=== PATIENT | male | born 2005 | race Caucasian/White ===

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

== ENCOUNTER 2023-02-13 10:03 | Emergency (ER) | payer OTHER, SELFPAY ==
--- NOTE | 2023-02-13 10:09 | HMH.EDGENADL ---
Discharge Plan Disposition Patient Disposition: Home, Self-Care Condition: Good Prescriptions Prescriptions: New ondansetron 4 mg tablet,disintegrating 4 mg PO Q8H PRN (Reason: nausea and vomiting) 3 Days Qty: 12 0RF No Action ondansetron 4 mg tablet,disintegrating 4 mg PO Q8H PRN (Reason: nausea and vomiting) Qty: 10 0RF Referrals Follow up/Referrals: Provider,Referral, MD [Primary Care Provider] - See instructions Activity Restrictions/Add. Instructions Additional Instructions/Restrictions: At this time is felt you are safe to be discharged home. If new or worsening symptoms please do not hesitate to return to the emergency department. Please take your medication as prescribed. Clinical Impressions Clinical Impression: Nausea Instructions Patient Instructions: DI for Nausea -- Adult Discharge ED Provider: Raghu You General Adult HPI General Chief complaint: Nausea/Vomiting/Diarrhea Stated complaint: Nausea Time Seen by Provider: 02/13/23 10:06 History of Present Illness HPI narrative: Patient is a 17-year-old male with no pertinent past medical history presents emergency department for evaluation of nausea. History is obtained by patient and significant other at bedside. After eating cracker last night both patient and his significant other have felt nauseous and not good . Patient has had no vomiting, still voiding and stooling without blood. Denies abdominal pain, chest pain, other acute complaints at this time. Due to refractory nausea who presents here for continued evaluation. Related Data Previous Rx's Medication Instructions Recorded ondansetron 4 mg disintegrating 4 mg PO Q8H PRN nausea and 12/02/22 tablet vomiting #10 tabs ondansetron 4 mg disintegrating 4 mg PO Q8H PRN nausea and 02/13/23 tablet vomiting 3 days #12 tabs Allergies Allergy/AdvReac Type Severity Reaction Status Date / Time No Known Allergies Allergy Verified 11/13/22 11:34 [facility] Disclaimer: The information contained in this section may have been updated after the patient was seen, as this information can be updated by other users. 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 Travel in the last 8 weeks: None household members: family housing: house ROS Obtained: Yes Systems reviewed as appropriate & no additional complaints except as documented Physical Exam General General appearance: alert and in no apparent distress Head Head exam: atraumatic and normocephalic Eye Eye exam: Present PERRL and EOMI ENT ENT exam: Present mucous membranes moist Neck Neck exam: Present normal inspection Chest Chest inspection: Present normal inspection and symmetric chest wall rise Respiratory Respiratory exam: Absent respiratory distress Cardiovascular Cardiovascular exam: Present regular rate and normal rhythm Abdominal Exam Abdominal exam: Present soft; Absent tenderness, guarding, rebound or rigidity Extremities Exam Extremities exam: Present normal inspection Neurological Exam Neurological exam: Present alert and oriented X3 Psychiatric Psychiatric exam: Present normal affect Skin Skin exam: Present warm and dry Medical Decision Making Castillo Inquiry Pt receiving controlled substance: No Medical Decision Narrative: In summary patient is a 17-year-old male with past medical history described above who presents emergency department for evaluation of nausea. Patient is hemodynamically stable nontoxic-appearing upon arrival, afebrile. Differential diagnosis includes toxin mediated gastroenteritis, viral syndrome, among others. Given benign abdominal exam and normal hemodynamics work-up with labs and imaging was considered however doubt serious pathology will be deferred at this time. Initial interventions incl
[2023-02-13 10:10] VITALS: BP 141/80; PULSE 95; RESP 16; TEMP 36.5; O2SAT 98; BMI 48.2
[2023-02-13 10:22] VITALS: BP 141/80; PULSE 79; RESP 18; TEMP 36.5; O2SAT 95
== END 2023-02-13 10:25 | disposition home or self-care (01) ==
LOC: ER 10:25
PROVIDERS: Emergency Provider Emergency Medicine
DX: R11.0 Nausea (principal); F17.200 Nicotine dependence, unspecified, uncomplicated
CPT/HCPCS: 99283

== ENCOUNTER 2023-03-21 16:46 | Emergency (ER) | payer BC, SELFPAY ==
[2023-03-21 16:46] VITALS: BP 139/90; PULSE 76; RESP 18; TEMP 36.9; O2SAT 98; BMI 48.7
--- NOTE | 2023-03-21 16:59 | XR_ITS ---
PROCEDURE INFORMATION: Exam: XR Left Knee Exam date and time: 03/21/2023 4:56 PM Age: 17 years old Clinical indication: Pain; Knee; Left TECHNIQUE: Imaging protocol: Radiologic exam of the left knee. Views: 3 views. COMPARISON: No relevant prior studies available. FINDINGS: Bones/joints: Normal. Soft tissues: Normal. IMPRESSION: No acute findings.
--- NOTE | 2023-03-21 17:13 | EXP.UTC ---
Discharge Plan Disposition Patient Disposition: Home, Self-Care Condition: Good Prescriptions Prescriptions: No Action ondansetron 4 mg tablet,disintegrating 4 mg PO Q8H PRN (Reason: nausea and vomiting) Qty: 10 0RF ondansetron 4 mg tablet,disintegrating 4 mg PO Q8H PRN (Reason: nausea and vomiting) 3 Days Qty: 12 0RF Referrals Follow up/Referrals: Juliano Quintanilla DO [Staff Physician] - See instructions Provider,Referral, [Primary Care Provider] - See instructions Activity Restrictions/Add. Instructions Additional Instructions/Restrictions: Rest the extremity, apply ice for 15 minutes as tolerated three or four times per day, Wear the david wrap for compression, Elevate the extremity as tolerated while you are resting. Take ibuprofen for pain. I sent in a prescription to your pharmacy. Follow up with Dr. Quintanilla (orthopedics) if you continue to have symptoms. I put in a referral but you need to call his office and schedule an appointment. Follow up with your regular doctor. GO TO THE ER FOR ANY WORSENING SYMPTOMS Clinical Impressions Clinical Impression: Left knee sprain, Left knee pain Stand Alone Forms Stand Alone Forms: Work/School Release Instructions Patient Instructions: Knee Sprain, How to Use an Elastic Bandage-Knee Sprain, DI for Knee Sprain Discharge ED Provider: Khai Green [facility] General Stated complaint: lt knee pain Time Seen by Provider: 03/21/23 17:13 History of Present Illness Provider Complaint: He states that 1 day ago he twisted his left knee. Since then he has had left knee pain, swelling and stiffness. Related Data Previous Rx's Medication Instructions Recorded ondansetron 4 mg disintegrating 4 mg PO Q8H PRN nausea and 12/02/22 tablet vomiting #10 tabs ondansetron 4 mg disintegrating 4 mg PO Q8H PRN nausea and 02/13/23 tablet vomiting 3 days #12 tabs Allergies Allergy/AdvReac Type Severity Reaction Status Date / Time No Known Allergies Allergy Verified 11/13/22 11:34 [facility] Disclaimer: The information contained in this section may have been updated after the patient was seen, as this information can be updated by other users. 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 Travel in the last 8 weeks: None household members: family housing: house ROS Obtained: Yes All systems reviewed & no additional complaints except as documented Constitutional Constitutional: Denies chills and Denies fever(s) Eyes Eyes: Denies eye discharge ENT Ears, Nose, Mouth, and Throat: Denies dizziness, Denies otalgia and Denies sore throat Cardiovascular Cardiovascular: Denies chest pain Respiratory Respiratory: Denies shortness of breath, Denies chest congestion, Denies cough, Denies stridor and Denies wheezing Gastrointestinal Gastrointestingal: Denies nausea or vomiting Musculoskeletal Musculoskeletal: Reports as per HPI Integumentary/Breasts Skin/Breast: Denies rash Neurologic Neurologic: Denies dizziness and Denies paresthesias Allergic/Immunologic Allergic/Immunologic: Denies wheezing Physical Exam General General appearance: alert and in no apparent distress Head Head exam: atraumatic, normocephalic and normal inspection Eye Eye exam: Present normal appearance, PERRL and EOMI ENT ENT exam: Present normal exam, normal oropharynx, mucous membranes moist, TM's normal bilaterally and normal external ear exam Neck Neck exam: Present normal inspection, full ROM and trachea midline; Absent meningismus or lymphadenopathy Chest Chest inspection: Present normal inspection and symmetric chest wall rise; Absent tenderness Respiratory Respiratory exam: Present normal lung sounds bilaterally; Absent respiratory distress Cardiovascular Cardiovascular exam: Present regular rate and acmryn
[2023-03-21 17:57] VITALS: BP 139/90; PULSE 76; RESP 18; TEMP 36.9; O2SAT 98
== END 2023-03-21 17:58 | disposition home or self-care (01) ==
PROVIDERS: Emergency Provider Nurse Practitioner Family
DX: S83.92XA Sprain of unspecified site of left knee, initial encounter (principal); M25.562 Pain in left knee; F17.210 Nicotine dependence, cigarettes, uncomplicated; X50.1XXA Overexertion from prolonged static or awkward postures, initial encounter
CPT/HCPCS: 73562; 99212; 99214; G0463

== ENCOUNTER 2023-03-28 23:54 | Emergency (ER) | payer BC, SELFPAY ==
[2023-03-28 23:59] VITALS: BP 138/78; PULSE 86; RESP 18; TEMP 37.2; O2SAT 95; BMI 48.7
--- NOTE | 2023-03-29 00:06 | HMH.EDGENADL ---
Discharge Plan Disposition Patient Disposition: Home, Self-Care Condition: Good Prescriptions Prescriptions: New ondansetron HCl 4 mg tablet 4 mg PO Q8H PRN (Reason: nausea and vomiting) 5 Days Qty: 30 0RF No Action ondansetron 4 mg tablet,disintegrating 4 mg PO Q8H PRN (Reason: nausea and vomiting) Qty: 10 0RF ondansetron 4 mg tablet,disintegrating 4 mg PO Q8H PRN (Reason: nausea and vomiting) 3 Days Qty: 12 0RF Referrals Follow up/Referrals: Provider,Referral, MD [Primary Care Provider] - See instructions Activity Restrictions/Add. Instructions Additional Instructions/Restrictions: Please follow-up with your primary care provider. Please return to the emergency department if you develop any new or worsening symptoms or become concerned for your health. Please take Zofran as needed for nausea and vomiting. Clinical Impressions Clinical Impression: Obesity, Nausea & vomiting Stand Alone Forms Stand Alone Forms: Work/School Release Instructions Patient Instructions: DI for Acute Abdominal Pain Discharge ED Provider: Paul Olmos General Adult HPI General Chief complaint: Abdominal Pain Stated complaint: stomach pain, nausea, vomiting Time Seen by Provider: 03/29/23 00:01 Mode of Arrival: Ambulatory Source of Information: Patient and Significant Other Limitations: No Limitations Description of Symptoms (Recalled from ER Triage Doc. by RN): Abd pain nausea and vommit x1 History of Present Illness HPI narrative: 17-year-old male history of morbid obesity presents with 1 episode of nausea vomiting and epigastric discomfort that happened at work today. He reports that he ate some [employer] and then shortly after had the symptoms. He reports that he currently does not have any abdominal pain or nausea. He reports no right upper quadrant or right lower quadrant pain. Reports normal bowel movements. Reports that he is recently changed shifts and is now working later than he previously did. He has had prior episodes of epigastric pain in the past and is worried that it could be his gallbladder. No reported fevers at home. No history of abdominal surgeries. Related Data Previous Rx's Medication Instructions Recorded ondansetron 4 mg disintegrating 4 mg PO Q8H PRN nausea and 12/02/22 tablet vomiting #10 tabs ondansetron 4 mg disintegrating 4 mg PO Q8H PRN nausea and 02/13/23 tablet vomiting 3 days #12 tabs ondansetron HCl 4 mg tablet 4 mg PO Q8H PRN nausea and 03/29/23 vomiting 5 days #30 tabs Allergies Allergy/AdvReac Type Severity Reaction Status Date / Time No Known Allergies Allergy Verified 11/13/22 11:34 [facility] Disclaimer: The information contained in this section may have been updated after the patient was seen, as this information can be updated by other users. 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 Travel in the last 8 weeks: None household members: family housing: house ROS Obtained: Yes All systems reviewed & no additional complaints except as documented Physical Exam General General appearance: alert, in no apparent distress and obese Head Head exam: atraumatic and normocephalic Eye Eye exam: Present normal appearance, PERRL and EOMI ENT ENT exam: Present normal oropharynx and normal external ear exam Neck Neck exam: Present normal inspection and full ROM Chest Chest inspection: Present normal inspection and symmetric chest wall rise; Absent tenderness Respiratory Respiratory exam: Present normal lung sounds bilaterally; Absent respiratory distress Cardiovascular Cardiovascular exam: Present regular rate and normal rhythm Abdominal Exam Abdominal exam: Present soft; Absent distention, tenderness or guarding Extremities Exam Extremities exam: Present normal inspecti
[2023-03-29 00:30] VITALS: BP 141/93; PULSE 72; RESP 18; TEMP 37.1; O2SAT 98
== END 2023-03-29 00:32 | disposition home or self-care (01) ==
PROVIDERS: Emergency Provider Emergency Medicine
DX: R10.13 Epigastric pain (principal); R11.2 Nausea with vomiting, unspecified; E66.9 Obesity, unspecified; F17.200 Nicotine dependence, unspecified, uncomplicated
CPT/HCPCS: 99284

== ENCOUNTER 2023-04-08 00:19 | Emergency (ER) | payer BC, SELFPAY ==
[2023-04-08 00:20] VITALS: BP 123/70; PULSE 82; RESP 20; TEMP 36.9; O2SAT 96; BMI 48.7
--- NOTE | 2023-04-08 00:34 | PC.NURSE ---
in room talking with patient at this time.
--- NOTE | 2023-04-08 00:41 | HMH.EDGENADL ---
Discharge Plan Disposition Patient Disposition: Home, Self-Care Prescriptions Prescriptions: New ibuprofen 800 mg tablet 800 mg PO TID PRN (Reason: pain) 7 Days Qty: 20 0RF cyclobenzaprine 5 mg tablet 5 mg PO TID PRN (Reason: muscle spasm) 5 Days Qty: 15 0RF No Action ondansetron 4 mg tablet,disintegrating 4 mg PO Q8H PRN (Reason: nausea and vomiting) Qty: 10 0RF ondansetron 4 mg tablet,disintegrating 4 mg PO Q8H PRN (Reason: nausea and vomiting) 3 Days Qty: 12 0RF ondansetron HCl 4 mg tablet 4 mg PO Q8H PRN (Reason: nausea and vomiting) 5 Days Qty: 30 0RF Referrals Follow up/Referrals: Provider,Referral, MD [Primary Care Provider] - See instructions Activity Restrictions/Add. Instructions Additional Instructions/Restrictions: You have no red flags for emergency imaging or any concern for bony abnormalities or central nervous system abnormalities. Please return with symptoms that we discussed. Please take your ibuprofen and your muscle relaxer as indicated. I strongly advised that you lose weight and that you rest for several days as you are likely deconditioned with your physical labor. This is a very common cause of back pain and you need to make sure that you are keeping your core strong and taking care of yourself otherwise these types of conditions and symptoms with your physical labor will continue to worsen as you get older. No emergent medical condition identified return with worsening symptoms. Clinical Impressions Clinical Impression: Acute lumbar myofascial strain Instructions Patient Instructions: DI for Low Back Pain Discharge ED Provider: Steph Fuentes General Adult HPI General Chief complaint: Back Pain/Injury Stated complaint: back pain Time Seen by Provider: 04/08/23 00:31 Mode of Arrival: Ambulatory Source of Information: Patient Limitations: No Limitations Description of Symptoms (Recalled from ER Triage Doc. by RN): pt reports mid back pain since last Friday, reports he thinks he hurt it at work from twisting and pulling, tried Motrin, Tylenol and heating pad with no relief. History of Present Illness HPI narrative: Patient is an obese 17-year-old male who has been working long hours and overtime at [employer] doing significant physical labor and presents to the emergency department with lower back pain. States that nothing out of the ordinary was done but no significant trauma or injury has occurred that he is aware of. 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 Denies any lower extremity weakness, saddle anesthesia, midline back pain, fevers, urinary or bowel incontinence, urinary retention, history of injection drug use, history of cancer or fever. Pain is worse with movement and touch. Related Data Previous Rx's Medication Instructions Recorded ondansetron 4 mg disintegrating 4 mg PO Q8H PRN nausea and 12/02/22 tablet vomiting #10 tabs ondansetron 4 mg disintegrating 4 mg PO Q8H PRN nausea and 02/13/23 tablet vomiting 3 days #12 tabs ondansetron HCl 4 mg tablet 4 mg PO Q8H PRN nausea and 03/29/23 vomiting 5 days #30 tabs cyclobenzaprine 5 mg tablet 5 mg PO TID PRN muscle spasm 5 04/08/23 days #15 tabs ibuprofen 800 mg tablet 800 mg PO TID PRN pain 7 days #20 04/08/23 tabs Allergies Allergy/AdvReac Type Severity Reaction Status Date / Time No Known Allergies Allergy Verified 11/13/22 11:34 [facility] Disclaimer: The information contained in this section may have been updated after the patient was seen, as this information can be updated by other users. Social History Smoking Status: Current every day smoker
[2023-04-08 00:50] VITALS: BP 137/57; PULSE 85; RESP 20; TEMP 36.8; O2SAT 97
[2023-04-08 00:51] VITALS: BP 137/57; PULSE 84; RESP 14; TEMP 36.1; O2SAT 97
== END 2023-04-08 00:52 | disposition home or self-care (01) ==
PROVIDERS: Emergency Provider Student in an Organized Health Care Education/Training Program
DX: S33.5XXA Sprain of ligaments of lumbar spine, initial encounter (principal); X50.0XXA Overexertion from strenuous movement or load, initial encounter; F17.200 Nicotine dependence, unspecified, uncomplicated
CPT/HCPCS: 99283

== ENCOUNTER 2023-04-12 01:59 | Emergency (ER) | payer BC, SELFPAY ==
[2023-04-12 02:00] VITALS: BP 153/85; PULSE 70; RESP 18; TEMP 36.6; O2SAT 94; BMI 50.2
--- NOTE | 2023-04-12 02:33 | HMH.EDGENADL ---
Discharge Plan Disposition Patient Disposition: Home, Self-Care Condition: Good Prescriptions Prescriptions: New methocarbamol 500 mg tablet 500 mg PO Q6H PRN (Reason: pain) Qty: 30 0RF No Action ibuprofen 800 mg tablet 800 mg PO TID PRN (Reason: pain) 7 Days Qty: 20 0RF cyclobenzaprine 5 mg tablet 5 mg PO TID PRN (Reason: muscle spasm) 5 Days Qty: 15 0RF Referrals Follow up/Referrals: Provider,Referral, MD [Primary Care Provider] - See instructions Activity Restrictions/Add. Instructions Additional Instructions/Restrictions: Please follow-up with your primary care provider. Please return to the emergency department if you develop any new or worsening symptoms or become concerned for your health. Please take Tylenol and ibuprofen for pain. Please take Robaxin as needed. Clinical Impressions Clinical Impression: Leg pain, right Discharge ED Provider: Paul Olmos General Adult HPI General Chief complaint: Extremity Problem,Nontraumatic Stated complaint: Right hip pain Time Seen by Provider: 04/12/23 02:18 Mode of Arrival: Ambulatory Source of Information: Patient Limitations: No Limitations Description of Symptoms (Recalled from ER Triage Doc. by RN): Pt present with right leg pain that started at work today in his right calf which has now migrated into his right hip. Right calf is non tender to touch, no redness noted. History of Present Illness HPI narrative: 17-year-old male history of obesity presents with complaints of a sending posterior right leg pain. He reports that he was at work on his feet when he started having right Achilles pain. He reports that it was constant in nature. He then reports that it then moved up into his calf and his posterior thigh and is now on his lateral hip. He has no history of blood clot, no recent immobilization, no swelling. He had no recent trauma or injury. No numbness or tingling or weakness reported. Related Data Previous Rx's Medication Instructions Recorded cyclobenzaprine 5 mg tablet 5 mg PO TID PRN muscle spasm 5 04/08/23 days #15 tabs ibuprofen 800 mg tablet 800 mg PO TID PRN pain 7 days #20 04/08/23 tabs methocarbamol 500 mg tablet 500 mg PO Q6H PRN pain #30 tabs 04/12/23 Allergies Allergy/AdvReac Type Severity Reaction Status Date / Time No Known Allergies Allergy Verified 11/13/22 11:34 [facility] Disclaimer: The information contained in this section may have been updated after the patient was seen, as this information can be updated by other users. 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 Travel in the last 8 weeks: None household members: family housing: house ROS Obtained: Yes All systems reviewed & no additional complaints except as documented Physical Exam General General appearance: alert, in no apparent distress and obese Head Head exam: atraumatic and normocephalic Eye Eye exam: Present normal appearance, PERRL and EOMI ENT ENT exam: Present normal oropharynx and normal external ear exam Neck Neck exam: Present normal inspection and full ROM Chest Chest inspection: Present normal inspection and symmetric chest wall rise; Absent tenderness Respiratory Respiratory exam: Present normal lung sounds bilaterally; Absent respiratory distress Cardiovascular Cardiovascular exam: Present regular rate and normal rhythm Abdominal Exam Abdominal exam: Present soft; Absent distention, tenderness or guarding Extremities Exam Extremities exam: Present normal inspection and other (No significant tenderness or abnormality of the right lower extremity, intact strength, sensation, range of motion. No calf swelling or tenderness); Absent edema or joint swelling Back Exam Back exam: Present normal inspection; Absent tenderness Neurological Exam
[2023-04-12 02:41] VITALS: BP 148/84; PULSE 74; RESP 18; TEMP 36.6; O2SAT 99
== END 2023-04-12 02:43 | disposition home or self-care (01) ==
PROVIDERS: Emergency Provider Emergency Medicine
DX: M79.661 Pain in right lower leg (principal); F17.200 Nicotine dependence, unspecified, uncomplicated
CPT/HCPCS: 99283

== ENCOUNTER 2024-08-26 13:42 | Emergency (ER) | payer BC, SELFPAY ==
[2024-08-26 14:21] VITALS: BP 145/78; PULSE 115; RESP 18; TEMP 37.1; O2SAT 96; BMI 50.1
[2024-08-26 14:26] LABS: UTC Strep Screen (Rapid) Positive (Negative)
--- NOTE | 2024-08-26 14:31 | ED_ITS ---
Discharge Plan Disposition Patient Disposition: Home, Self-Care Condition: Good Prescriptions Prescriptions: New amoxicillin 875 mg tablet 875 mg PO Q12H Qty: 20 0RF [id number] [Bromfed DM] 2-30-10 mg/5 mL Syrup 5 ml PO Q6H PRN (Reason: Cough) Qty: 240 0RF ondansetron 4 mg Tablet,Disintegrating 4 mg PO Q8H PRN (Reason: Nausea) Qty: 12 0RF Referrals Follow up/Referrals: Provider,Referral, MD [Primary Care Provider] - See instructions Activity Restrictions/Add. Instructions Additional Instructions/Restrictions: Drink plenty of fluids. Take tylenol or ibuprofen for pain or fever. Take the medications as directed. Follow up with your regular doctor. GO TO THE ER FOR ANY WORSENING SYMPTOMS Throw your tooth brush away and get a new one. Clinical Impressions Clinical Impression: Strep throat Stand Alone Forms Stand Alone Forms: Work/School Release Instructions Patient Instructions: Strep Throat, DI for Strep Throat, Amoxicillin Print Language Print Language: Nepalese Discharge ED Provider: Khai Green [facility] HPI General Stated complaint: sore throat, cough Mode of Arrival: Ambulatory Source of Information: Patient Time Seen by Provider: 08/26/24 14:31 Description of Symptoms (Recalled from Triage Doc. by RN): SORE THROAT, COUGH HEENT Symptoms (Recalled from RN notes): Yes Resp Symptoms (Recalled from RN notes): Yes Skin Symptoms (Recalled from RN notes): No MS Symptoms (Recalled from RN notes): No Functional Status (Recalled from RN notes): WNL Related Data Previous Rx's ?Medication ?Instructions ?Recorded amoxicillin 875 mg tablet 875 mg PO Q12H #20 tabs 08/26/24 [id number] 5 ml PO Q6H PRN Cough #240 mL 08/26/24 2 mg-30 mg-10 mg/5 mL oral syrup (Bromfed DM) ondansetron 4 mg disintegrating 4 mg PO Q8H PRN Nausea #12 tabs 08/26/24 tablet Allergies Allergy/AdvReac Type Severity Reaction Status Date / Time No Known Allergies Allergy Verified 11/13/22 11:34 Worker's Comp Is this a Worker's Comp case?: No [facility] Disclaimer: The information contained in this section may have been updated after the patient was seen, as this information can be updated by other users. 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 Travel in the last 8 weeks: None household members: family housing: house Have you lived/traveled outside [place] in past 30 days?: No Contact w/someone who lives/traveled outside [place] past 30 days?: No Exposure to someone with infectious disease in past 14 days?: No Do you have a fever (greater than 100.4 F or 38 C)?: No Have you tested positive for COVID-19: No Exposed to someone with COVID-19 in past 14 days?: No Do you have a sore throat?: Yes Do you have a cough?: Yes Do you have any weakness?: No Do you have any diarrhea?: No Are you experiencing any unusual bleeding?: No Do you have any muscle aches/pain?: No Do you have any abdominal pain?: No Are you experiencing loss of taste or smell?: No ROS Obtained: Yes All systems reviewed & no additional complaints except as documented Constitutional Constitutional: Reports chills and Reports fever(s) Eyes Eyes: Denies eye discharge ENT Ears, Nose, Mouth, and Throat: Reports as per HPI Cardiovascular Cardiovascular: Denies chest pain Respiratory Respiratory: Denies chest congestion and Reports cough Gastrointestinal Gastrointestingal: Reports nausea; Denies abdominal pain, constipation, cramping, diarrhea or vomiting Musculoskeletal Musculoskeletal: Denies arthralgias Integumentary/Breasts Skin/Breast: Denies rash Neurologic Neurologic: Denies paresthesias Physical Exam General General appearance: alert and in no apparent distress Head Head exam: atraumatic, normocephalic and normal inspection Eye Eye exam: Present normal appearance, PERRL and EOMI ENT ENT exam: Present mucous membranes moist and normal external ear exam Expanded ENT Exam TM/Canal exam: Bilateral TM: erythema and bulging Nose exam: Absent sinus tenderness Mouth exam: Present normal external inspection; Absent drooling Teeth exam: Present normal inspection Throat exam: Present tonsillar erythema, tonsillomegaly and tonsillar exudate Neck Neck exam: Present normal inspection, full ROM and trachea midline; Absent tenderness, meningismus or lymphadenopathy Chest Chest inspection: Present normal inspection and symmetric chest wall rise; Absent tenderness Respiratory Respiratory exam: Present normal lung sounds bilaterally; Absent respiratory distress, wheezes, stridor or accessory muscle use Cardiovascular Cardiovascular exam: Present regular rate and normal rhythm; Absent systolic murmur or diastolic murmur Abdominal Exam Abdominal exam: Present soft and normal bowel sounds; Absent distention, tenderness, guarding, rebound or rigidity Extremities Exam Extremities exam: Present normal inspection and normal capillary refill; Absent calf tenderness Back Exam Back exam: Present normal inspection and full ROM; Absent tenderness, CVA tenderness (R) or CVA tenderness (L) Neurological Exam Neurological exam: Present alert, oriented X3 and CN II-XII intact Psychiatric Psychiatric exam: Present normal affect and normal mood Skin Skin exam: Present warm, dry, intact and normal color Medical Decision Making Medical Records Medical records reviewed: No I reviewed the patient's medical records. Screening: Per USPSTF and CDC recommendations, given the prevalence of disease in our region, it is our hospital?s policy to screen for HIV and viral Hepatitis for all patients aged 18 and over and those with ongoing risk factors. Castillo Inquiry Pt receiving controlled substance: No Vital Signs: 08/26/24 14:21 Temperature 98.8 F Temperature Source Oral Pulse Rate [Left Radial] 115 H Respiratory Rate 18 Blood Pressure [Left Arm] 145/78 H Blood Pressure Mean [Left Arm] 100 02 Sat by Pulse Oximetry 96 Lab Data Lab results reviewed: Yes I reviewed the patient's lab results. Lab Results 08/26/24 14:22: Strep Scn [facility] Positive A
[2024-08-26 14:56] VITALS: BP 145/78; PULSE 115; RESP 18; TEMP 37.1
== END 2024-08-26 14:58 | disposition home or self-care (01) ==
PROVIDERS: Emergency Provider Nurse Practitioner Family
DX: J02.0 Streptococcal pharyngitis (principal)
CPT/HCPCS: 87880; 99212; G0381

== ENCOUNTER 2024-11-03 17:34 | Outpatient (CLI) | payer BC, SELFPAY ==
--- NOTE | 2024-11-03 17:44 | XR_ITS ---
PROCEDURE INFORMATION: Exam: XR Left Knee Exam date and time: 11/03/2024 5:45 PM Age: 19 years old Clinical indication: Pain; Knee; Left; Additional info: Lateral left knee pain TECHNIQUE: Imaging protocol: Radiologic exam of the left knee. Views: 3 views. COMPARISON: CR XR KNEE LT 3V 03/21/2023 4:56 PM FINDINGS: Bones/joints: Normal. Soft tissues: Normal. IMPRESSION: No acute findings.
== END 2024-11-03 23:59 | disposition home or self-care (01) ==
LOC: RAD 17:37
PROVIDERS: PCP Family Medicine; Visit Provider Family Medicine
DX: M25.562 Pain in left knee (principal)
CPT/HCPCS: 73562

== ENCOUNTER 2024-11-24 14:41 | Outpatient (CLI) | payer BC, SELFPAY ==
--- NOTE | 2024-11-24 14:44 | MR_ITS ---
FINAL REPORT CLINICAL HISTORY: ACUTE PAIN LT KNEE, FELT A POP 2 WEEKS AGO WHEN STANDING COMPARISON: None FINDINGS: Multi planar MR imaging was performed of the left knee, with and without intravenous contrast. The anterior and posterior cruciate ligaments are intact. The quadriceps and patellar tendons are intact. There is a small linear defect in the posterior horn of the medial meniscus, best seen on images #11 and 12 of series 4, consistent with a small meniscal tear. The lateral meniscus is intact. The medial and lateral collateral ligaments appear intact. The medial and lateral retinacula appear intact. There is no evidence of bone marrow edema or osteochondral defect. No evidence of soft tissue inflammatory reaction. IMPRESSION: Minimal linear defect of the posterior horn of the medial meniscus consistent with a small tear. Reviewed, Interpreted and Dictated by Patricio Garrison MD Transcribed by Beverly Salcedo Authenticated and [facility]
[2024-11-24] MEDS: GADOTERIDOL INJ 10ML SYRINGE 10 ML IV (16:13)
[2024-11-24] MEDS: GADOTERIDOL INJ 20ML SYRINGE 20 ML IV (16:13)
== END 2024-11-24 23:59 | disposition home or self-care (01) ==
LOC: RAD 14:42
PROVIDERS: PCP Family Medicine; Visit Provider Family Medicine
DX: M23.322 Other meniscus derangements, posterior horn of medial meniscus, left knee (principal)
CPT/HCPCS: 73723; A9576